=== PATIENT | male | born 1980 ===

== ENCOUNTER 2017-10-21 13:13 | Emergency (ER) | payer MEDICAID ==
[~2017-10-21] VITALS: Ht 177.8 cm; Wt 80.5 kg
[2017-10-21 13:20] VITALS: BP 133/66
[2017-10-21] MEDS ORDERED: naproxen 500mg tablet PO ONE (13:35)
== END 2017-10-21 14:35 | disposition home or self-care (01) ==
LOC: ER 13:15
DX: S90.851A Superficial foreign body, right foot, initial encounter (principal); G89.29 Other chronic pain; M79.671 Pain in right foot; F17.200 Nicotine dependence, unspecified, uncomplicated; W22.8XXA Striking against or struck by other objects, initial encounter; Y93.89 Activity, other specified; Y92.89 Other specified places as the place of occurrence of the external cause; Y99.8 Other external cause status
CPT/HCPCS: 99281